=== PATIENT | male | born 1950 | race Caucasian/White ===

== ENCOUNTER → 2022-08-27 | Outpatient (CLI) | payer MEDICARE, SELFPAY ==
--- NOTE | 2022-08-27 09:06 | RAD_ITS ---
EXAM: XR CHEST, 2 VIEWS CLINICAL INDICATION: COPD, occupationa silica dust exposure TECHNIQUE: Frontal and lateral views of the chest. This report was created using [employer] report generation technology. COMPARISON: None. FINDINGS: LUNGS AND PLEURAL SPACES: The lung viera are hyperexpanded. 2 nodules in the left lower lobe. These measure 2 mm and 5 mm. Correlation with prior imaging would be helpful if available. Otherwise, please obtain chest CT follow-up. No pneumothorax. No effusion. HEART: Unremarkable. Cardiac silhouette not enlarged. MEDIASTINUM: Central airways and mediastinal contour are unremarkable. BONES/JOINTS: Unremarkable. SOFT TISSUES: Unremarkable. RAD/Chest PA and Lateral IMPRESSION: 2 nodules in the left lower lobe. These measure 2 mm and 5 mm. Correlation with prior imaging would be helpful if available. Otherwise, please obtain chest CT follow-up. Electronically Signed: Casper Childs MD at 14:34 EDT ,
--- NOTE | 2022-08-27 14:47 | PFTCOMP ---
COMPLETE PULMONARY FUNCTION TEST INTERPRETATION Brief HPI: Patient is a 72-year-old male, currently under the care of Dr. Lepe, who presents to [facility] for complete pulmonary function tests secondary to diagnosis of COPD. Respiratory therapist reports good effort and reproducible results. Interpretation: Forced expiration spirometry shows a mild large airways obstructive ventilatory defect with an FEV1 of 72% predicted. There is a significant bronchodilator response in FVC and FEV1 by strict ATS criteria. Spirograms are of good quality and plateau slowly, indicating slowly emptying areas of the lungs. The respiratory flow volume loop shows decreased expiratory flow rates at all lung volumes consistent with airway obstruction. Lung volumes by body plethysmography show a normal total lung capacity at 6.76 L, 97% predicted. All other lung volumes are within normal limits. Diffusion capacity by carbon monoxide is normal at 90% predicted. The airway resistance is elevated. No previous pulmonary function tests were available for review. Impression: Partially reversible mild large airways obstructive ventilatory defect and a pattern consistent with COPD and asthma
== END | disposition home or self-care (01) ==
LOC: PSN 09:05
PROVIDERS: PCP Internal Medicine; Referring Provider Internal Medicine; Visit Provider Internal Medicine
DX: J44.9 Chronic obstructive pulmonary disease, unspecified (principal)
CPT/HCPCS: 71046; 94060; 94726; 94729

== ENCOUNTER → 2022-09-17 | Outpatient (CLI) | payer MEDICARE, SELFPAY ==
--- NOTE | 2022-09-17 07:47 | CT_ITS ---
INDICATION: lung nodules on CXR EXAMINATION: CT CHEST WITH CONTRAST - CT Chest W/ Contrast Injection TECHNIQUE: Helically acquired images were obtained of the chest following IV contrast. A radiation dose optimization technique was used for this scan. IV Contrast dosage and agent: 100 mL Isovue 300 COMPARISON: None. FINDINGS: LUNGS, PLEURA AND LARGE AIRWAYS: There is severe underlying emphysema with bleb formation throughout both lung viera. Interstitial fibrotic scarring noted in both lung apices. No organizing infiltrate or effusion, nonspecific pleural thickening noted in both hemithoraces, calcified pleural plaques noted along the right hemidiaphragm THYROID: No thyroid lesions. HEART AND PERICARDIUM: Heart size is normal. No pericardial effusion. There are calcified coronary vessels. VESSELS: Aneurysmal dilatation of the ascending thoracic aorta at 4.2 cm. No aortic dissection. No obvious central pulmonary embolism although this study was not performed with the pulmonary embolism protocol. MEDIASTINUM AND BAY: No mediastinal or hilar adenopathy. Esophagus is unremarkable. No hiatal hernia. UPPER ABDOMEN: No acute pathology. BONES: Bony structures show degenerative change CT/Chest WITH Contrast IMPRESSION: Severe underlying emphysema with bleb formation throughout both lung viera. No superimposed infiltrate or effusion. There are fibrotic scars in the apices with associated pleural thickening. Aneurysmal dilatation of the ascending thoracic aorta at 4.2 cm, no evidence of dissection Calcified coronary vessels Degenerative bony changes Electronically Signed: Everette Walters MD at 9:18 EDT ,
[2022-09-17 08:15] LABS: CREATININE FINGERSTICK 1.4 mg/dL (0.70-1.30)
== END | disposition home or self-care (01) ==
LOC: CT 07:40
PROVIDERS: PCP Internal Medicine; Referring Provider Internal Medicine; Visit Provider Internal Medicine
DX: R91.1 Solitary pulmonary nodule (principal)
CPT/HCPCS: 71260; Q9967

== ENCOUNTER → 2022-11-25 | Outpatient (CLI) | payer MEDICARE, SELFPAY ==
--- NOTE | 2022-11-26 09:19 | PFT ---
INTRODUCTION: The patient is a 72-year-old male that presents for pulmonary function studies secondary to a diagnosis of COPD. Respiratory therapy reported good patient effort. Bronchodilators were used during testing. INTERPRETATION: Forced expiration spirometry demonstrates the presence of a moderately severe large airways obstructive ventilatory defect. There was a significant response to aerosolized bronchodilators. Spirograms are of good quality but do not plateau indicating slow emptying of the lungs. IMPRESSION: Moderately severe large airways obstructive ventilatory impairment with significant bronchodilator response.
== END | disposition home or self-care (01) ==
LOC: PSN 07:53
PROVIDERS: PCP Internal Medicine; Referring Provider Internal Medicine; Visit Provider Internal Medicine
DX: J44.9 Chronic obstructive pulmonary disease, unspecified (principal)
CPT/HCPCS: 94060

== ENCOUNTER → 2022-12-01 | Outpatient (CLI) | payer MEDICARE, SELFPAY ==
--- NOTE | 2022-12-01 07:42 | CT_ITS ---
INDICATION: Repeat from 3 months EXAMINATION: CT CHEST WITHOUT CONTRAST - CT Chest W/O Contrast Injection TECHNIQUE: Helically acquired images were obtained of the chest. A radiation dose optimization technique was used for this scan. IV Contrast dosage and agent: None. RADIATION DOSAGE (If Supplied By Facility): CTDIvol = ( 9.26 ) mGy, DLP = ( 379.51 ) mGycm COMPARISON: 09/17/2022 FINDINGS: LUNGS, PLEURA AND LARGE AIRWAYS: Unchanged 5 mm lateral right lower lobe subpleural nodule (series 4, image 108). Unchanged 5 mm right middle lobe nodule (image 99). Unchanged 6 mm right lower lobe nodule (image 109). 4 mm lateral left lower lobe subpleural nodule (image 113). Unchanged right 9 mm left upper lobe nodule (image 37). Emphysema. Bilateral calcified pleural plaques. No pneumothorax. THYROID: No thyroid lesions. HEART AND PERICARDIUM: Heart size is normal. No pericardial effusion. CORONARY ARTERIES: Coronary artery calcification is seen. VESSELS: Mild dilation of the ascending aorta. MEDIASTINUM AND BAY: No mediastinal or hilar adenopathy. Esophagus is unremarkable. No hiatal hernia. UPPER ABDOMEN: No acute abnormal finding. BONES: No suspicious lytic or blastic abnormality. CT/Chest without Contrast IMPRESSION: 9 mm left upper lobe dominant nodule, unchanged, lung RADS 4A, repeat low-dose CT of the chest in 6 months. Smaller right and left lung nodules are unchanged. Mildly dilated ascending aorta. Electronically Signed: Jesús Jacobo MD at 18:19 EDT ,
== END | disposition home or self-care (01) ==
LOC: CT 07:41
PROVIDERS: PCP Internal Medicine; Referring Provider Internal Medicine; Visit Provider Internal Medicine
DX: R91.8 Other nonspecific abnormal finding of lung field (principal); J44.9 Chronic obstructive pulmonary disease, unspecified
CPT/HCPCS: 71250

== ENCOUNTER → 2024-05-12 | Outpatient (CLI) | payer MEDICARE, SELFPAY ==
--- NOTE | 2024-05-12 07:36 | CT_ITS ---
STUDY: CT CHEST WITHOUT CONTRAST REASON FOR EXAM: Male, 73 years old. Lung Nodules RADIATION DOSAGE (If Supplied By Facility): CTDIvol = ( 10.20 ) mGy, DLP = ( 397.59 ) mGycm TECHNIQUE: Transaxial imaging was performed without the administration of intravenous contrast material. Multiplanar coronal and sagittal images were reformatted. Individualized dose optimization techniques were used for this CT. COMPARISON: Comparison is made with prior study dated December 01, 2022. FINDINGS: CHEST There is hyperinflation of the lungs consistent with chronic obstructive lung disease (COPD). Emphysematous changes with bullous formation more prominent in the upper lobes. Calcified pleural plaques on the right side along the right diaphragmatic leaf. Stable 5 mm noncalcified nodule in the lateral aspect of the right lower lobe. Stable 5 mm nodule in the right middle lobe as seen on axial image #99. Stable 6 mm noncalcified nodule in the right lower lobe as seen on axial image #107. Stable 6.3 mm nodule in the posterior aspect of the left upper lobe as seen on image #35. This may represent a focal area of scarring. There are calcifications of the coronary arteries. There are small lymph nodes within the mediastinum, which are normal in size and morphology most compatible with reactive lymph hyperplasia. Normal hilar regions. Normal unenhanced pulmonary arteries. There is atherosclerotic calcification of the aortic arch. There are degenerative changes of the thoracic spine. There is no demonstrated abnormality of the visualized upper abdomen. CT/Chest without Contrast IMPRESSION: Stable examination. Follow-up in 12 months. Electronically Signed: Po Gonzales MD at 14:24 EST ,
== END | disposition home or self-care (01) ==
LOC: CT 07:33
PROVIDERS: PCP Internal Medicine; Referring Provider Internal Medicine Critical Care Medicine; Visit Provider Internal Medicine Critical Care Medicine
DX: R91.8 Other nonspecific abnormal finding of lung field (principal)
CPT/HCPCS: 71250